=== PATIENT | female | born 1960 | race Caucasian/White ===

== ENCOUNTER 2020-06-03 08:18 | Day surgery (SDC) | payer BC ==
[2020-06-03] VITALS (11 sets, daily range): BP systolic 121–156; BP diastolic 69–98; PULSE 76–95; TEMP 98.2
[~2020-06-03] VITALS: Ht 177.8 cm; Wt 131.7 kg
[~2020-06-03 08:18] MED LIST: ASPIRIN 32325 MG/TAB PO; AZO URINARY PAI95 MG PO; CATAPRES 0.1MG0.1 MG PO; CELEXA40 MG PO; CIPRO 500MG TA500 MG PO; FLAGYL500 MG PO; FLOMAX 0.40.4 MG/CAP PO; LEVOXYL0.2 MG PO; LINZESS145CAP PO; PERCOCET 325 MG1 TA2 PO; PRINIVIL10 MG PO; PROTONIX 40MG T40 MG PO; SYNTHROID0.05 MG/TA PO; TOPROL XL100 MG PO; VOLTAREN GEL 1%1 TU TP; XANAX .25M0.25 MG/TA PO; XARELTO20 MG PO
[2020-06-03] MEDS ORDERED: PRINIVIL20 MG PO (08:39)
[2020-06-03] MEDS ORDERED: TOPROL XL100 MG PO (08:40)
[2020-06-03] MEDS ORDERED: XARELTO20 MG PO (08:40)
[2020-06-03] MEDS ORDERED: FETZIMA40 PO (08:42)
[2020-06-03] MEDS ORDERED: SYNTHROID0.3 MG PO (08:43)
[2020-06-03] MEDS ORDERED: ASPIRIN E.C. 8181 MG PO (08:43)
[2020-06-03 09:05] LABS: HEMATOCRIT 41.4 % (37.0-47.0); MEAN CELL VOLUME 85 fl (80.0-100.0); MEAN CORPUSCULAR HEMOGLOBIN 29 pg (27.0-31.0); MEAN CORPUSCULAR HGB CONC 34 g/dl (33.0-37.0); MEAN PLATELET VOLUME 10.3 fl (7.4-10.4); PLATELET COUNT 185 K/mm3 (130-400); RED BLOOD COUNT 4.89 M/mm3 (4.10-5.30); REDCELL DISTRIBUTION WIDTH-CV 13.2 % (11.5-14.5)
[2020-06-03 09:13] LABS: PROTHROMBIN TIME 11.4 SECONDS (9.7-12.8)
[2020-06-03 09:15] LABS: CALCIUM 8.9 mg/dL (8.4-10.2); CREATININE, serum 0.6 (0.52-1.25); POTASSIUM 4.1 mmol/L (3.4-5.0)
--- NOTE | 2020-06-03 12:00 | NUR ---
Pt back from [facility], she is awake and alert, pwd, TR band to rt wrist, cms intact distal. lunch ordered. pt monitored. call light in reach.
--- NOTE | 2020-06-03 12:00 | NUR ---
bedside report to liberty calderon. pt has pain to the right wrist where the TR band is placed. pillow placed under the wrist for comfort. pt is alert and oriented. daughter at bedside with patient at this time. liberty calderon will assume care of patient at this time.
--- NOTE | 2020-06-03 15:45 | NUR ---
Pt to exit at this time. tr band was deflated with no problem, and site dressed at this time with bandaid and 2x2/coban mild compression dressing. Pt has been able to eat and drink with no problem, she is ambulatory wiht steady gait. iv is dc'd with cath intact. no questions after review of dc/rx and fu instructions.
== END 2020-06-03 15:45 | disposition home or self-care (01) ==
LOC: COL.CAR 08:18
PROVIDERS: Internal Medicine Cardiovascular Disease
DX: I25.10 Atherosclerotic heart disease of native coronary artery without angina pectoris (principal); I10 Essential (primary) hypertension; E78.5 Hyperlipidemia, unspecified; F41.9 Anxiety disorder, unspecified; F17.210 Nicotine dependence, cigarettes, uncomplicated; R94.39 Abnormal result of other cardiovascular function study; Z86.718 Personal history of other venous thrombosis and embolism; Z79.01 Long term (current) use of anticoagulants; Z85.43 Personal history of malignant neoplasm of ovary; Z85.850 Personal history of malignant neoplasm of thyroid; Z88.2 Allergy status to sulfonamides; Z88.7 Allergy status to serum and vaccine; Z88.8 Allergy status to other drugs, medicaments and biological substances; Z79.82 Long term (current) use of aspirin
CPT/HCPCS: J1644; J2250; J3010; Q9967

== ENCOUNTER 2021-06-07 11:15 | Emergency (ER) | payer MEDICARE ==
[~2021-06-07] VITALS: Ht 177.8 cm; Wt 119.5 kg
[~2021-06-07 11:15] MED LIST changes: +ASPIRIN E.C. 8181 MG PO; +FETZIMA40 PO; +PRINIVIL20 MG PO; +SYNTHROID0.3 MG PO
[2021-06-07 12:17] VITALS: TEMP 98
[2021-06-07 12:52] LABS: BASO % 0.3 % (0.0-2.0); EOS # 0.1 (0.0-0.7); EOS % 1.3 % (0-4.0); GRAN # 4.1 (1.4-6.5); GRAN % 67.6 % (42.2-75.2); HEMATOCRIT 42.5 % (37.0-47.0); HEMOGLOBIN 13.8 g/dl (12.5-16.0); LYMPH # 1.4 (1.2-3.4); LYMPH % 23.5 % (20.0-51.0); MEAN CELL VOLUME 87 fl (80.0-100.0); MEAN CORPUSCULAR HEMOGLOBIN 28 pg (27.0-31.0); MEAN CORPUSCULAR HGB CONC 33 g/dl (33.0-37.0); MEAN PLATELET VOLUME 10.5 fl (7.4-10.4); MONO # 0.4 (0.1-0.6); MONO % 6.8 % (1.7-9.3); PLATELET COUNT 186 K/mm3 (130-400); RED BLOOD COUNT 4.86 M/mm3 (4.10-5.30); REDCELL DISTRIBUTION WIDTH-CV 13.7 % (11.5-14.5)
[2021-06-07 13:01] LABS: INR 1.1 (0.8-3.0); PROTHROMBIN TIME 11.8 SECONDS (9.7-12.8)
[2021-06-07 13:05] LABS: ALBUMIN 4.1 gm/dL (3.5-5.0); BILIRUBIN,TOTAL 0.4 mg/dL (0.0-1.0); CALCIUM 8.4 mg/dL (8.4-10.2); CREATININE, serum 0.63 (0.52-1.25); POTASSIUM 3.8 mmol/L (3.4-5.0); TOTAL PROTEIN 7.1 gm/dL (6.4-8.2)
[2021-06-07 14:21] VITALS: BP 166/101; PULSE 64
== END 2021-06-07 14:21 | disposition home or self-care (01) ==
LOC: COL.ER 11:15
PROVIDERS: Personal Emergency Response Attendant
DX: K62.5 Hemorrhage of anus and rectum (principal); Z79.01 Long term (current) use of anticoagulants; H11.31 Conjunctival hemorrhage, right eye; I10 Essential (primary) hypertension; Z86.718 Personal history of other venous thrombosis and embolism; Z85.43 Personal history of malignant neoplasm of ovary; Z90.710 Acquired absence of both cervix and uterus; Z79.899 Other long term (current) drug therapy

== ENCOUNTER 2023-01-06 01:16 | Emergency (ER) | payer MEDICARE ==
[~2023-01-06] VITALS: Ht 180.3 cm; Wt 124.5 kg
[~2023-01-06 01:16] MED LIST changes: +TESSALON PERLE200 MG PO
[2023-01-06 01:21] VITALS: TEMP 97.7
[2023-01-06 01:56] LABS: BASO % 0.5 % (0.0-2.0); EOS # 0.1 K/mm3 (0.0-0.7); GRAN # 5.2 K/mm3 (1.4-6.5); GRAN % 78.4 % (42.2-75.2); HEMOGLOBIN 14.5 g/dl (12.5-16.0); LYMPH # 0.8 K/mm3 (1.2-3.4); LYMPH % 12.3 % (20.0-51.0); MEAN CELL VOLUME 87 fl (80.0-100.0); MEAN CORPUSCULAR HEMOGLOBIN 29 pg (27-31); MEAN CORPUSCULAR HGB CONC 33 g/dl (33.0-37.0); MONO # 0.4 K/mm3 (0.1-0.6); PLATELET COUNT 193 K/mm3 (130-400); RED BLOOD COUNT 5.05 M/mm3 (4.10-5.30); REDCELL DISTRIBUTION WIDTH-CV 14.1 % (11.5-14.5)
[2023-01-06 02:22] LABS: ALBUMIN 3.6 gm/dL (3.4-4.8); BILIRUBIN,TOTAL 0.4 mg/dL (0.2-1.2); CALCIUM 8.8 mg/dL (8.4-10.2); CREATININE, serum 0.76 mg/dL (0.57-1.11); POTASSIUM 4.2 mmol/L (3.5-4.5); TOTAL PROTEIN 7.2 gm/dL (6.2-8.1)
[2023-01-06] MEDS ORDERED: ZOFRAN ODT4 MG PO ×3 (04:23→06:48)
[2023-01-06] MEDS ORDERED: AMOXICILLIN 8751 TAB PO ×3 (04:23→06:48)
[2023-01-06 04:39] VITALS: BP 120/61; PULSE 80
== END 2023-01-06 04:40 | disposition home or self-care (01) ==
LOC: COL.ER 01:16
PROVIDERS: Personal Emergency Response Attendant
DX: R11.10 Vomiting, unspecified (principal); R10.84 Generalized abdominal pain; J40 Bronchitis, not specified as acute or chronic; F17.200 Nicotine dependence, unspecified, uncomplicated; Z28.310 Unvaccinated for COVID-19
CPT/HCPCS: J0696; J1790; J2270; J2405; J7030; Q9967